=== PATIENT | male | born 2000 | race Caucasian/White ===

== ENCOUNTER 2018-03-21 07:17 | Day surgery (SDC) | payer OTHER | END 2018-03-21 17:25 | disposition home or self-care (01) | LOC: CIR.AMB 07:17 | DX: M24.832 Other specific joint derangements of left wrist, not elsewhere classified (principal) ==

== ENCOUNTER 2018-05-11 12:02 | Outpatient (CLI) | payer OTHER | END 2018-05-11 12:10 | disposition home or self-care (01) | LOC: SONOGRAMA 12:02 | DX: E04.1 Nontoxic single thyroid nodule (principal) ==